=== PATIENT | male | born 1970 | race American Indian/Alaskan Native ===

== ENCOUNTER 2018-02-06 14:06 | Emergency (ER) | payer MEDICAID, OTHER ==
[2018-02-06 14:22] VITALS: BP 137/85; PULSE 87; RESP 18; TEMP 98.2; O2SAT 98
--- NOTE | 2018-02-06 14:49 | C.PDOC ---
History Of Present Illness 47yo male, comes to ER reporting persistent posterior thigh pain x 1 week. Patient states he accidentally fell and while getting himself up, he felt "pops " in the back of bilateral thighs. He states the pain still persists and is not relieved with Naproxen. He denies any other injuries, weakness or numbness. Patient states the pain is worsening since he is standing and walking around a lot at work. Otherwise, he offers no additional medical complaints. Time Seen by Provider: 02/06/18 14:37 Chief Complaint (Nursing): Lower Extremity Problem/Injury History Per: Patient History/Exam Limitations: no limitations Additional History Per: Patient Past Medical History Reviewed: Historical Data, Nursing Documentation, Vital Signs Vital Signs: Last Vital Signs Temp 98.2 F 02/06/18 14:20 Pulse 87 02/06/18 14:20 Resp 18 02/06/18 14:20 BP 137/85 02/06/18 14:20 Pulse Ox 98 02/06/18 14:57 - Medical History PMH: Diabetes, HTN Surgical History: No Surg Hx Family History: States: Hypertension - Social History Hx Tobacco Use: No Hx Alcohol Use: No Hx Substance Use: No - Immunization History Hx Tetanus Toxoid Vaccination: No Hx Influenza Vaccination: No Hx Pneumococcal Vaccination: No Review Of Systems Musculoskeletal: Positive for: Other (posterior thigh pain bilaterally) Neurological: Negative for: Weakness, Numbness Physical Exam - Physical Exam Appears: Non-toxic, No Acute Distress, Other (morbidly obese) Skin: Normal Color Head: Atraumatic, Normacephalic Eye(s): bilateral: Normal Inspection Neck: Normal ROM, Supple Chest: Symmetrical Cardiovascular: Rhythm Regular Respiratory: Normal Breath Sounds Extremity: Tenderness (reproducible pain with hamstring flexion bilaterally.), No Pedal Edema, No Calf Tenderness, No Deformity, Other (no asymmetry noted; normal joints) Neurological/Psych: Oriented x3, Normal Motor, Normal Sensation ED Course And Treatment O2 Sat by Pulse Oximetry: 98 (RA) Pulse Ox Interpretation: Normal Medical Decision Making Medical Decision Making: Impression: Hamstring tear Patient informed of physical exam findings. Instructed to take medications as prescribed and to follow up with PMD in 2-3 days. Instructed to take medications as prescribed. Disposition Counseled Patient/Family Regarding: Diagnosis, Need For Followup, Rx Given - Disposition Referrals: YOUR,PMD [Other] Disposition: HOME/ ROUTINE Disposition Time: 14:54 Condition: IMPROVED Additional Instructions: APPLY PATCH TO AFFECTED AREA. MAX 3 PATCHES AT A TIME. REMOVE PATCH 12 HOURS AFTER INITIAL APPLICATION. ALTERNATE 12 HOURS ON, 12 HOURS OFF. Prescriptions: Cyclobenzaprine [Flexeril] 10 mg PO TID #15 tab Ibuprofen [Motrin Tab] 800 mg PO Q6 #30 tab Lidocaine 5% [Lidoderm] 1 ea TD PRN PRN #20 patch PRN Reason: Pain, Moderate (4-7) Tramadol HCl [Ultram] 50 mg PO QID #20 tab Instructions: Hamstring Muscle Strain (DC), Hamstring Injury Forms: [facility] (Sami), School Excuse, Work Excuse - Clinical Impression Clinical Impression: Hamstring strain - Scribe Statement The provider has reviewed the documentation as recorded by the [place] Provider Attestation: All medical record entries made by the [place] were at my direction and personally dictated by me. I have reviewed the chart and agree that the record accurately reflects my personal performance of the history, physical exam, medical decision making, and the department course for this patient. I have also personally directed, reviewed, and agree with the discharge instructions and disposition.
[2018-02-06] MEDS ORDERED: Oxycodone/Acetaminophen 5/325 mg Tab PO STA (14:54)
[2018-02-06] MEDS ORDERED: Lidocaine 5% Patch TD STA (14:54)
[2018-02-06] MEDS ORDERED: Oxycodone/Acetaminophen 5/325 mg Tab ONE (15:05)
[2018-02-06] MEDS ORDERED: Lidocaine 5% Patch TD ONE (15:05)
== END 2018-02-06 15:13 | disposition home or self-care (01) ==
LOC: C.ER 14:06
DX: S76.019A Strain of muscle, fascia and tendon of unspecified hip, initial encounter (principal); W19.XXXA Unspecified fall, initial encounter